=== PATIENT | female | born 1970 | race Caucasian/White ===

== ENCOUNTER 2019-11-28 14:46 | Emergency (ER) | payer OTHER ==
[2019-11-28] MEDS ORDERED: Lidocaine 1% PF 5 ML VIAL ONE (15:03)
[2019-11-28] MEDS ORDERED: Cephalexin 250 MG CAP ONE (15:03)
[2019-11-28] MEDS ORDERED: Bacitracin 1 PK ONE (15:16)
== END 2019-11-28 15:37 | disposition home or self-care (01) ==
LOC: BURERS 14:46
DX: S61.012A Laceration without foreign body of left thumb without damage to nail, initial encounter (principal); W29.8XXA Contact with other powered hand tools and household machinery, initial encounter
CPT/HCPCS: 12002; J2001